=== PATIENT | male | born 1940 | race Caucasian/White ===

== ENCOUNTER → 2021-01-28 | Outpatient (CLI) | payer MEDICARE, OTHER ==
[~2021-01-28] MED LIST: ALBUTEROL SULFAT3 M3 IH; ALBUTEROL0.83 MG/ML IH; AQUAPHOR OINTM396 GM TP; ASPIRIN E.C. 8181 MG PO; AZILECT1 MG PO; BETAMETHASONE VA0.1% TP; CLARITIN 1010 MG/TAB PO; COLACE 100100 MG/CAP PO; COZAAR 50MG50 MG/TAB PO; COZAAR100 MG PO; FLOMAX 0.40.4 MG/CAP PO; FLONASE NASAL S16 GM NS; GLUCOPHAGE500 MG/TAB PO; HCTZ 25MG TAB25 MG PO; HCTZ12.5TAB PO; INCRUSE EL62.5 MCG/A IH; LIPITOR 10MG10 MG PO; LIPITOR20 MG PO; MELATONIN5 M1 SL; NEURONTIN100 MG/CAP PO; ONE-A-DAY ESSE1 EACH PO; PLAVIX 75MG TAB75 MG PO; PRILOSEC 20MG20 MG PO; PROVENTIL0.09 MG/A1 IH; REQUIP2 MG PO; RT ADVAIR 528 DISKUS IH; RT SPIRIVA18 MCG IH; SINEMET 25/101 UDTAB PO; SINGULAIR 110 MG/TAB PO; UROXATRAL10 M1 PO; ZESTRIL 20MG TA20 MG PO; ZETIA 10MG TAB10 MG PO; ZITHROMAX 250M250 MG PO; ZOLOFT 25MG25 MG PO; ZYPREXA 5MG5 MG PO; ZYPREXA2.5 MG PO; [UNRECOGNIZED DRUG - OTHER] TOP
[2021-01-28 11:21] LABS: BASO # 0.1 (0.0-0.2); BASO % 0.7 % (0.0-2.0); EOS # 0.3 (0.0-0.7); EOS % 3.9 % (0-4.0); GRAN # 4.3 (1.4-6.5); GRAN % 61.9 % (42.2-75.2); HEMATOCRIT 41.3 % (42.0-52.0); HEMOGLOBIN 13.1 g/dl (13.5-18.0); LYMPH # 1.7 (1.2-3.4); LYMPH % 24.7 % (20.0-51.0); MEAN CELL VOLUME 90 fl (80.0-100.0); MEAN CORPUSCULAR HEMOGLOBIN 28 pg (27.0-31.0); MEAN CORPUSCULAR HGB CONC 32 g/dl (33.0-37.0); MEAN PLATELET VOLUME 11.6 fl (7.4-10.4); MONO # 0.6 (0.1-0.6); MONO % 8.4 % (1.7-9.3); PLATELET COUNT 189 K/mm3 (130-400); RED BLOOD COUNT 4.61 M/mm3 (4.20-5.60); REDCELL DISTRIBUTION WIDTH-CV 13.7 % (11.5-14.5)
[2021-01-28 11:29] LABS: ALBUMIN 3.6 gm/dL (3.5-5.0); BILIRUBIN,TOTAL 0.7 mg/dL (0.0-1.0); CALCIUM 8.4 mg/dL (8.4-10.2); CREATININE, serum 1.05 (0.66-1.25); POTASSIUM 3.9 mmol/L (3.4-5.0); TOTAL PROTEIN 6.4 gm/dL (6.4-8.2)
[2021-01-28 11:42] LABS: CHOLESTEROL RISK RATIO 5.1
[2021-01-28 11:58] LABS: THYROID STIMULATING HORMONE 0.588 uIU/mL (0.465-4.680)
[2021-01-28 16:09] LABS: MUCOUS Present /lpf; PH 5 (5-8); SQUAMOUS EPITHELIAL None Seen /hpf; URINE APPEARANCE Clear; URINE BACTERIA None Seen /hpf; URINE BILIRUBIN Negative (NEGATIVE); URINE BLOOD Negative (NEGATIVE); URINE COLOR Yellow; URINE GLUCOSE 2+ (NEGATIVE); URINE KETONE Negative (NEGATIVE); URINE LEUKOCYTE ESTERASE Negative (NEGATIVE); URINE NITRATE Negative (NEGATIVE); URINE PROTEIN(semi-quant) Negative (NEGATIVE); URINE RBC 0-2 /hpf; URINE UROBILINOGEN Negative (NEGATIVE)
[2021-01-28 17:46] LABS: COLLECTION METHOD CLEAN CATCH
== END ==
LOC: ZLAB.STJ 10:55
PROVIDERS: Family Medicine
DX: E11.649 Type 2 diabetes mellitus with hypoglycemia without coma (principal); E03.9 Hypothyroidism, unspecified; I10 Essential (primary) hypertension; N40.1 Benign prostatic hyperplasia with lower urinary tract symptoms; J44.1 Chronic obstructive pulmonary disease with (acute) exacerbation; K21.9 Gastro-esophageal reflux disease without esophagitis; E78.5 Hyperlipidemia, unspecified; G20 Parkinson's disease

== ENCOUNTER → 2021-01-30 | Outpatient (CLI) | payer MEDICARE, OTHER | LOC: ZCOL.LAB 11:59 | DX: Z01.89 Encounter for other specified special examinations (principal) ==

== ENCOUNTER → 2021-01-30 | Outpatient (REF) ==
[2021-01-30 11:20] LABS: COLLECTION METHOD RANDOM VOIDED
[2021-01-30 11:33] LABS: BASO # 0.1 (0.0-0.2); BASO % 0.6 % (0.0-2.0); EOS # 0.2 (0.0-0.7); EOS % 3.1 % (0-4.0); GRAN # 5.3 (1.4-6.5); GRAN % 67.8 % (42.2-75.2); HEMOGLOBIN 14.5 g/dl (13.5-18.0); LYMPH # 1.5 (1.2-3.4); LYMPH % 19.2 % (20.0-51.0); MEAN CELL VOLUME 89 fl (80.0-100.0); MEAN CORPUSCULAR HEMOGLOBIN 28 pg (27.0-31.0); MEAN CORPUSCULAR HGB CONC 32 g/dl (33.0-37.0); MEAN PLATELET VOLUME 11.8 fl (7.4-10.4); MONO # 0.7 (0.1-0.6); MONO % 8.5 % (1.7-9.3); PLATELET COUNT 221 K/mm3 (130-400); RED BLOOD COUNT 5.18 M/mm3 (4.20-5.60); REDCELL DISTRIBUTION WIDTH-CV 13.7 % (11.5-14.5)
[2021-01-30 11:36] LABS: PH 5 (5-8); SQUAMOUS EPITHELIAL 0-2 /hpf; URINE APPEARANCE Clear; URINE BACTERIA None Seen /hpf; URINE BILIRUBIN Negative (NEGATIVE); URINE BLOOD Negative (NEGATIVE); URINE COLOR Yellow; URINE GLUCOSE Negative (NEGATIVE); URINE KETONE Negative (NEGATIVE); URINE LEUKOCYTE ESTERASE Negative (NEGATIVE); URINE NITRATE Negative (NEGATIVE); URINE PROTEIN(semi-quant) Negative (NEGATIVE); URINE RBC 0-2 /hpf; URINE UROBILINOGEN Negative (NEGATIVE); URINE WBC 0-2 /hpf
[2021-01-30 11:44] LABS: ALBUMIN 4.3 gm/dL (3.5-5.0); BILIRUBIN,TOTAL 0.7 mg/dL (0.0-1.0); CALCIUM 8.9 mg/dL (8.4-10.2); CREATININE, serum 1.15 (0.66-1.25); POTASSIUM 4.1 mmol/L (3.4-5.0); TOTAL PROTEIN 7.5 gm/dL (6.4-8.2)
[2021-01-30 11:59] LABS: CHOLESTEROL RISK RATIO 4.8
[2021-01-30 12:14] LABS: THYROID STIMULATING HORMONE 0.562 uIU/mL (0.465-4.680)
== END ==
LOC: ZLAB.STJ 11:18
PROVIDERS: Family Medicine
DX: Z01.89 Encounter for other specified special examinations (principal)

== ENCOUNTER → 2021-02-10 | Outpatient (CLI) | payer MEDICARE, OTHER | LOC: COL.RAD 13:27 | DX: R76.11 Nonspecific reaction to tuberculin skin test without active tuberculosis (principal) ==

== ENCOUNTER → 2021-05-22 | Outpatient (CLI) | payer MEDICARE, OTHER | LOC: ZLAB.STJ 16:41 | DX: N40.1 Benign prostatic hyperplasia with lower urinary tract symptoms (principal); Z12.5 Encounter for screening for malignant neoplasm of prostate ==

== ENCOUNTER → 2021-05-26 | Outpatient (CLI) | payer MEDICARE, OTHER ==
[2021-05-26 16:51] LABS: ALBUMIN 3.3 gm/dL (3.4-4.8); BILIRUBIN,TOTAL 0.5 mg/dL (0.2-1.2); CALCIUM 8.4 mg/dL (8.4-10.2); CREATININE, serum 1.19 mg/dL (0.72-1.25); TOTAL PROTEIN 6.5 gm/dL (6.2-8.1)
== END ==
LOC: ZLAB.STJ 14:19
PROVIDERS: Family Medicine
DX: R13.14 Dysphagia, pharyngoesophageal phase (principal)

== ENCOUNTER → 2021-06-05 | Outpatient (CLI) | payer MEDICARE, OTHER | LOC: COL.RAD 11:26 | DX: N40.0 Benign prostatic hyperplasia without lower urinary tract symptoms (principal); J44.9 Chronic obstructive pulmonary disease, unspecified; M19.90 Unspecified osteoarthritis, unspecified site; R46.89 Other symptoms and signs involving appearance and behavior ==

== ENCOUNTER 2021-06-06 15:45 | Observation (INO) | payer MEDICARE, OTHER ==
[~2021-06-06] VITALS: Ht 175.3 cm; Wt 83.8 kg
[~2021-06-06 15:45] MED LIST changes: -AZILECT1 MG PO; -COLACE 100100 MG/CAP PO; -COZAAR 50MG50 MG/TAB PO; -HCTZ12.5TAB PO; -LIPITOR 10MG10 MG PO; -MELATONIN5 M1 SL; -ONE-A-DAY ESSE1 EACH PO; -PLAVIX 75MG TAB75 MG PO; -ZOLOFT 25MG25 MG PO; -ZYPREXA 5MG5 MG PO; -ZYPREXA2.5 MG PO
[2021-06-06 16:51] LABS: BASO # 0.1 K/mm3 (0.0-0.2); BASO % 0.9 % (0.0-2.0); EOS # 0.6 K/mm3 (0.0-0.7); GRAN # 3.2 K/mm3 (1.4-6.5); GRAN % 54.5 % (42.2-75.2); HEMOGLOBIN 11.4 g/dl (13.5-18.0); LYMPH # 1.1 K/mm3 (1.2-3.4); LYMPH % 19.7 % (20.0-51.0); MEAN CELL VOLUME 90 fl (80.0-100.0); MEAN CORPUSCULAR HEMOGLOBIN 29 pg (27.0-31.0); MEAN CORPUSCULAR HGB CONC 32 g/dl (33.0-37.0); MEAN PLATELET VOLUME 10.8 fl (7.4-10.4); MONO # 0.8 K/mm3 (0.1-0.6); PLATELET COUNT 156 K/mm3 (130-400); RED BLOOD COUNT 3.93 M/mm3 (4.20-5.60); REDCELL DISTRIBUTION WIDTH-CV 13.5 % (11.5-14.5)
[2021-06-06 17:04] LABS: HEMATOCRIT 35.3 % (42.0-52.0)
[2021-06-06 17:08] LABS: INR 1.1 (0.8-3.0); PROTHROMBIN TIME 11.9 SECONDS (9.7-12.8)
[2021-06-06 17:14] LABS: ALANINE AMINOTRANSFERASE 16 U/L (0-55); ALBUMIN 3.3 gm/dL (3.4-4.8); ALKALINE PHOSPHATASE 104 U/L (0-750); ANION GAP 8 mmol/L (7-16); AST,SGOT 21 U/L (5-34); BILIRUBIN,TOTAL 0.5 mg/dL (0.2-1.2); BLOOD UREA NITROGEN 16 mg/dL (8-26); CALCIUM 8.6 mg/dL (8.4-10.2); CARBON DIOXIDE 25 mmol/L (23-31); CHLORIDE 107 mmol/L (98-107); CREATININE, serum 1.21 mg/dL (0.72-1.25); GLUCOSE 114 mg/dL (70-99); POTASSIUM 3.8 mmol/L (3.5-4.5); SODIUM 140 mmol/L (136-145); TOTAL PROTEIN 6.5 gm/dL (6.2-8.1)
[2021-06-06 17:20] LABS: TROPONIN-I < 0.010 ng/mL (0.00-0.033)
[2021-06-06 18:52] LABS: COLLECTION METHOD CLEAN CATCH
[2021-06-06 18:58] LABS: PH 5 (5-8); SQUAMOUS EPITHELIAL None Seen /hpf; URINE APPEARANCE Clear; URINE BACTERIA None Seen /hpf; URINE BILIRUBIN Negative (NEGATIVE); URINE BLOOD Negative (NEGATIVE); URINE COLOR Yellow; URINE GLUCOSE Negative (NEGATIVE); URINE KETONE Negative (NEGATIVE); URINE LEUKOCYTE ESTERASE Negative (NEGATIVE); URINE NITRATE Negative (NEGATIVE); URINE PROTEIN(semi-quant) Negative (NEGATIVE); URINE RBC 0-2 /hpf; URINE UROBILINOGEN Negative (NEGATIVE)
[2021-06-06] MEDS ORDERED: MELATONIN5 M1 SL (20:29)
[2021-06-06] MEDS ORDERED: ZYPREXA 5MG5 MG PO (20:30)
[2021-06-06] MEDS ORDERED: AZILECT1 MG PO (20:30)
[2021-06-06] MEDS ORDERED: ZYPREXA2.5 MG PO (20:30)
[2021-06-06] MEDS ORDERED: ZOLOFT 25MG25 MG PO (20:30)
[2021-06-06] MEDS ORDERED: COZAAR 50MG50 MG/TAB PO (20:31)
[2021-06-06] MEDS ORDERED: HCTZ12.5TAB PO (20:31)
[2021-06-06] MEDS ORDERED: ONE-A-DAY ESSE1 EACH PO (20:31)
[2021-06-06] MEDS ORDERED: COLACE 100100 MG/CAP PO (20:31)
[2021-06-06] MEDS ORDERED: ASPIRIN E.C. 8181 MG PO (20:31)
--- NOTE | 2021-06-06 21:50 | NUR ---
Pt admitted to room 325 per cart from ED, accompanied by ED staff, alert, able to slide from cart to bed with minimal assist, pt oriented to self and birthday, knows his 's name, unable to state where he is currently, states he gets confused on date and time. on RA, VSS. 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 IV present in , placed on NS @75cc/hr. hx and medications reviewed from [facility] paperwork.
[2021-06-06 21:59] VITALS: BP 152/66; PULSE 58; TEMP 97.3
[2021-06-06 23:51] VITALS: BP 134/62; PULSE 56; TEMP 98.1
[2021-06-07 03:43] VITALS: BP 128/51; PULSE 56; TEMP 98.5
--- NOTE | 2021-06-07 05:40 | NUR ---
pt on RA, no changes noted in neuro status, able to ambulate to restroom with assist x1, slightly unsteady at times, does not remember to call for help, impulsive, bed alarm on.
[2021-06-07 07:15] LABS: BASO % 0.7 % (0.0-2.0); EOS # 0.5 K/mm3 (0.0-0.7); EOS % 8.2 % (0-4.0); GRAN # 3.6 K/mm3 (1.4-6.5); HEMOGLOBIN 10.9 g/dl (13.5-18.0); LYMPH # 1.1 K/mm3 (1.2-3.4); LYMPH % 18.2 % (20.0-51.0); MEAN CELL VOLUME 88 fl (80.0-100.0); MEAN CORPUSCULAR HEMOGLOBIN 29 pg (27.0-31.0); MEAN CORPUSCULAR HGB CONC 33 g/dl (33.0-37.0); MEAN PLATELET VOLUME 11.8 fl (7.4-10.4); MONO # 0.6 K/mm3 (0.1-0.6); MONO % 10.6 % (1.7-9.3); PLATELET COUNT 154 K/mm3 (130-400); RED BLOOD COUNT 3.78 M/mm3 (4.20-5.60); REDCELL DISTRIBUTION WIDTH-CV 13.6 % (11.5-14.5)
[2021-06-07 07:20] LABS: HEMATOCRIT 33.1 % (42.0-52.0)
[2021-06-07 07:22] LABS: CALCIUM 8.4 mg/dL (8.4-10.2); CREATININE, serum 0.99 mg/dL (0.72-1.25); POTASSIUM 3.6 mmol/L (3.5-4.5)
[2021-06-07 07:48] VITALS: BP 144/84; PULSE 58; TEMP 97.4
--- NOTE | 2021-06-07 11:00 | NUR ---
Patient agitated, yelling out and cursing. Upon entering room, patient states "get the hell out of here you Faith". Patient attempts to shove bedside table at staff, throws items off table. Grabs IV pole and attempts to pick it up and jab staff with pole. Another nurse enters room to assist with patient, patient looks at nurse and states "why don't you just bite my rios off". Patient continues to attempt to shove table at staff. Patient then gets OOB and ambulates to the bathroom, cursing and using inappropriate terms, at one time yelling at staff member out side of room "get out of here 'nigger'". Patient educated on appropriate speech. Security called to assist. Attempted x2 to notify Dr Serrato. Patient in bathroom, visual of patient at all times r/t fall risk. Patient continually hold middle finger up at staff and states "do you like that". Patient noted to be masturbating on toilet. Security at bedside.
--- NOTE | 2021-06-07 11:18 | NUR ---
stopped by but nothing needed at this time.
--- NOTE | 2021-06-07 12:30 | NUR ---
Patient continues with inappropriate behaviour. Continues to use inappropriate language and attempts to throw items at staff. Occasionally makes a fist and states "I'll beat you". Haldol given per Drs order.
--- NOTE | 2021-06-07 13:45 | NUR ---
Patient ambulates in servin with staff assist x2. Becomes drowsy, assisted back to bed. Resting in bed at thsi time.
--- NOTE | 2021-06-07 15:29 | NUR ---
Assessment not obtained. Patient is combative and not cooperating with staff. Will attempt family.
[2021-06-07 20:00] VITALS: BP 149/84; PULSE 62; TEMP 98.1
[2021-06-08] VITALS (8 sets, daily range): BP systolic 117–140; BP diastolic 59–86; PULSE 61–71; TEMP 97.2–98
[2021-06-08 07:38] LABS: BASO % 0.7 % (0.0-2.0); EOS # 0.5 K/mm3 (0.0-0.7); EOS % 9.6 % (0-4.0); GRAN # 3.4 K/mm3 (1.4-6.5); HEMATOCRIT 33.3 % (42.0-52.0); HEMOGLOBIN 10.8 g/dl (13.5-18.0); LYMPH # 0.9 K/mm3 (1.2-3.4); LYMPH % 15.7 % (20.0-51.0); MEAN CELL VOLUME 91 fl (80.0-100.0); MEAN CORPUSCULAR HEMOGLOBIN 29 pg (27.0-31.0); MEAN CORPUSCULAR HGB CONC 32 g/dl (33.0-37.0); MEAN PLATELET VOLUME 11.3 fl (7.4-10.4); MONO # 0.7 K/mm3 (0.1-0.6); MONO % 12.5 % (1.7-9.3); PLATELET COUNT 161 K/mm3 (130-400); RED BLOOD COUNT 3.67 M/mm3 (4.20-5.60); REDCELL DISTRIBUTION WIDTH-CV 13.5 % (11.5-14.5)
[2021-06-08 08:01] LABS: CALCIUM 8.4 mg/dL (8.4-10.2); CREATININE, serum 0.99 mg/dL (0.72-1.25); POTASSIUM 3.8 mmol/L (3.5-4.5)
--- NOTE | 2021-06-08 09:00 | NUR ---
WHEN ASKED HOW PT WAS DOING HE SAID "NOT GOOD". PT WOULD NOT ELABORATE, PT ALERT TO SELF BUT NOT PLACE OR TIME. REORIENTED PT, PT REFUSING TO TAKE MEDICATIONS, PT REFUSING BREAKFAST, ASSESSMENT PERFORMED, PT REPORTING ABD PAIN WITH PALPATION. NO OTHER NEEDS AT THIS TIME
--- NOTE | 2021-06-08 10:51 | NUR ---
PT C/O ABD PAIN, HAVING BM RECENTLY, PT STATED HE WOULD TAKE TYLENOL, CALLED PROVIDER FOR ORDER.
--- NOTE | 2021-06-08 14:52 | NUR ---
VERBAL ORDER OBTAINED FROM DR SINCLAIR TO DC TELEMETRY
--- NOTE | 2021-06-08 15:19 | NUR ---
PT DA REPORTS PT "HALLUCINATES ON SINEMET"
--- NOTE | 2021-06-08 17:11 | NUR ---
pt trying to get out of chair frequently, iv to lh infusing fluids, pt pleasantly confused, denies pain, no other needs
--- NOTE | 2021-06-08 17:45 | NUR ---
pt lowered himself to hands and knees from chair. chair alarm sounded, pt did not hit head. vitals obtained, left message for physician to notify. pt denies pain or discomfort. reports "just trying to pick something up off of the floor". back in chair with chair alarm on once again.
[2021-06-09 01:02] VITALS: BP 124/52; PULSE 63; TEMP 97.8
--- NOTE | 2021-06-09 01:28 | NUR ---
PT IS SLEEPING @ THIS TIME, SNORING QUIETLY. PT DOES NOT USE CALL LIGHT ET TRIES TO LEAVE BED ON OWN WHEN NEEDING TO USE BR. PT FOLLOWS DIRECTIONS BUT CONVERSTAION IS SOMETIMES INAPPROPRIATE ET PT OFTEN DOES NOT USE CORRECT EXPRESSIONS OF WORDS. 2 PERSON ASSIST USED TO USE URINAL ET USE BR. GAIT IS UNSTEADY ET PT SHUFFLES HIS FEET. BED ALARM ON, CALL LIGHT WITHIN REACH.
[2021-06-09 03:50] VITALS: BP 149/58; PULSE 64; TEMP 97.5
[2021-06-09 07:25] VITALS: BP 159/75; PULSE 62; TEMP 97.6
[2021-06-09] MEDS ORDERED: LIPITOR 10MG10 MG PO (08:30)
[2021-06-09] MEDS ORDERED: PLAVIX 75MG TAB75 MG PO (08:30)
[2021-06-09] MEDS ORDERED: SINEMET 25/101 UDTAB PO (08:32)
--- NOTE | 2021-06-09 09:01 | NUR ---
Patient alert, confused. Engages in conversation, although questions and answers sporadic. No inappropriate behaviours at this time.
[2021-06-09 09:29] VITALS: BP 159/75; PULSE 62; TEMP 97.6
[2021-06-09 11:29] VITALS: BP 121/53; PULSE 62; TEMP 96.8
--- NOTE | 2021-06-09 12:16 | NUR ---
First visit from the emergency preparedness manager. No needs right now.
--- NOTE | 2021-06-09 12:52 | NUR ---
Transfer time set for 1400. RN notified, family notified.
--- NOTE | 2021-06-09 14:23 | NUR ---
Patient transfered to [facility] via wheelchair/transportation staff. Report called to Marilee. Paperwork sent.
== END 2021-06-09 14:25 ==
LOC: COL.ER 15:45 → SURG 19:33
PROVIDERS: Nurse Practitioner Family; Student in an Organized Health Care Education/Training Program; ADMIT Student in an Organized Health Care Education/Training Program
DX: R41.82 Altered mental status, unspecified (principal); G20 Parkinson's disease; F02.81 Dementia in other diseases classified elsewhere, unspecified severity, with behavioral disturbance; I10 Essential (primary) hypertension; I25.10 Atherosclerotic heart disease of native coronary artery without angina pectoris; I50.30 Unspecified diastolic (congestive) heart failure; J44.9 Chronic obstructive pulmonary disease, unspecified; D64.9 Anemia, unspecified; E11.9 Type 2 diabetes mellitus without complications; E78.5 Hyperlipidemia, unspecified; G47.33 Obstructive sleep apnea (adult) (pediatric); E66.9 Obesity, unspecified; R41.9 Unspecified symptoms and signs involving cognitive functions and awareness; M19.90 Unspecified osteoarthritis, unspecified site; F03.90 Unspecified dementia, unspecified severity, without behavioral disturbance, psychotic disturbance, mood disturbance, and anxiety; E04.1 Nontoxic single thyroid nodule; F32.9 Major depressive disorder, single episode, unspecified; Z86.718 Personal history of other venous thrombosis and embolism; Z79.899 Other long term (current) drug therapy; Z79.82 Long term (current) use of aspirin
CPT/HCPCS: 99233-AI; G0378; J1630; J1650; J7030; Q9967

== ENCOUNTER → 2021-09-18 | Outpatient (CLI) | payer MEDICARE, OTHER ==
[~2021-09-18] MED LIST changes: +AZILECT1 MG PO; +COLACE 100100 MG/CAP PO; +COZAAR 50MG50 MG/TAB PO; +HCTZ12.5TAB PO; +LIPITOR 10MG10 MG PO; +MELATONIN5 M1 SL; +ONE-A-DAY ESSE1 EACH PO; +PLAVIX 75MG TAB75 MG PO; +ZOLOFT 25MG25 MG PO; +ZYPREXA 5MG5 MG PO; +ZYPREXA2.5 MG PO
[2021-09-18 16:29] LABS: COLLECTION METHOD CLEAN CATCH
[2021-09-18 16:49] LABS: PH 5 (5-8); SQUAMOUS EPITHELIAL None Seen /hpf (0-10); URINE APPEARANCE Clear (CLEAR/HAZY); URINE BACTERIA None Seen /hpf (NONE SEEN); URINE BILIRUBIN Negative (NEGATIVE); URINE BLOOD Negative (NEGATIVE); URINE CALCIUM OXALATE CRYSTAL Present (NOT PRESENT); URINE COLOR Yellow (YELLOW); URINE GLUCOSE Negative (NEGATIVE); URINE KETONE Trace (NEGATIVE); URINE LEUKOCYTE ESTERASE Negative (NEGATIVE); URINE NITRATE Negative (NEGATIVE); URINE PROTEIN(semi-quant) Negative (NEGATIVE); URINE RBC 0-2 /hpf (0-2); URINE UROBILINOGEN Negative (NEGATIVE); URINE WBC 0-2 /hpf (0-2)
== END ==
LOC: ZLAB.STJ 16:09
PROVIDERS: Internal Medicine
DX: N39.0 Urinary tract infection, site not specified (principal)

== ENCOUNTER → 2021-10-03 | Outpatient (CLI) | payer MEDICARE, OTHER | LOC: ZLAB.STJ 13:28 | DX: R73.09 Other abnormal glucose (principal) ==

== ENCOUNTER 2021-11-18 16:10 | Emergency (ER) | payer MEDICARE, OTHER ==
[~2021-11-18] VITALS: Ht 167.6 cm; Wt 81.8 kg
[2021-11-18 16:29] VITALS: TEMP 98.5
[2021-11-18 17:55] VITALS: BP 148/80; PULSE 67
== END 2021-11-18 17:55 | disposition home or self-care (01) ==
LOC: COL.ER 16:10
DX: S00.93XA Contusion of unspecified part of head, initial encounter (principal); Z87.891 Personal history of nicotine dependence; Z79.02 Long term (current) use of antithrombotics/antiplatelets; W01.198A Fall on same level from slipping, tripping and stumbling with subsequent striking against other object, initial encounter

== ENCOUNTER → 2021-12-04 | Outpatient (CLI) | payer MEDICARE, OTHER | LOC: ZLAB.STJ 13:42 | DX: E11.69 Type 2 diabetes mellitus with other specified complication (principal) ==

== ENCOUNTER → 2022-02-09 | Outpatient (CLI) | payer MEDICARE, OTHER ==
[2022-02-09 19:58] LABS: ALBUMIN 3.4 gm/dL (3.4-4.8); BILIRUBIN,TOTAL 0.5 mg/dL (0.2-1.2); CALCIUM 8.6 mg/dL (8.4-10.2); CREATININE, serum 1.21 mg/dL (0.72-1.25); POTASSIUM 4.6 mmol/L (3.5-4.5); TOTAL PROTEIN 6.2 gm/dL (6.2-8.1)
[2022-02-09 20:02] LABS: BASO % 0.6 % (0.0-2.0); EOS # 0.3 K/mm3 (0.0-0.7); EOS % 3.8 % (0.0-4.0); GRAN # 4.2 K/mm3 (1.4-6.5); GRAN % 64.5 % (42.2-75.2); HEMOGLOBIN 11.5 g/dl (13.5-18.0); LYMPH # 1.3 K/mm3 (1.2-3.4); LYMPH % 19.6 % (20.0-51.0); MEAN CELL VOLUME 91 fl (80.0-100.0); MEAN CORPUSCULAR HEMOGLOBIN 29 pg (27-31); MEAN CORPUSCULAR HGB CONC 32 g/dl (33.0-37.0); MEAN PLATELET VOLUME 12.5 fl (7.4-10.4); MONO # 0.7 K/mm3 (0.1-0.6); MONO % 10.9 % (1.7-9.3); PLATELET COUNT 180 K/mm3 (130-400); RED BLOOD COUNT 3.99 M/mm3 (4.20-5.60); REDCELL DISTRIBUTION WIDTH-CV 13.7 % (11.5-14.5)
[2022-02-09 20:05] LABS: HEMATOCRIT 36.1 % (42.0-52.0)
== END ==
LOC: ZCOL.LAB 19:16
PROVIDERS: Internal Medicine
DX: Z13.228 Encounter for screening for other metabolic disorders (principal); R79.9 Abnormal finding of blood chemistry, unspecified

== ENCOUNTER 2023-08-28 10:30 | Emergency (ER) | payer OTHER ==
[~2023-08-28 10:30] MED LIST changes: +BACTRIM DS 8001 TAB PO; +CEFTIN 250250 MG/TAB PO; +DEPAKOTE ER 25250 MG PO; +DEPAKOTE500 MG PO; +EXELON 1.5MG1.5 MG PO; +GOOD NEIGH1200 MG/15 PO; -HCTZ 25MG TAB25 MG PO; +LIPITOR 40MG TA40 MG PO; +MACROBID 1100 MG/CAP PO; +OMNICEF 300MG300 MG PO; +PEPCID 20MG TAB20 MG PO; +SALONPAS1 EACH TP; +TYLENOL 325MG325 MG PO; +TYLENOL 500MG500 MG PO
[2023-08-28 10:35] VITALS: TEMP 97.1
[2023-08-28 11:36] LABS: BASO % 0.7 % (0.0-2.0); EOS # 0.1 K/mm3 (0.0-0.7); EOS % 3.2 % (0.0-4.0); GRAN # 2.7 K/mm3 (1.4-6.5); GRAN % 60.7 % (42.2-75.2); HEMATOCRIT 32.1 % (42.0-52.0); HEMOGLOBIN 10.5 g/dl (13.5-18.0); LYMPH % 22.8 % (20.0-51.0); MEAN CELL VOLUME 93 fl (80.0-100.0); MEAN CORPUSCULAR HEMOGLOBIN 30 pg (27-31); MEAN CORPUSCULAR HGB CONC 33 g/dl (33.0-37.0); MEAN PLATELET VOLUME 11.6 fl (7.4-10.4); MONO # 0.6 K/mm3 (0.1-0.6); MONO % 12.4 % (1.7-9.3); PLATELET COUNT 126 K/mm3 (130-400); RED BLOOD COUNT 3.46 M/mm3 (4.20-5.60); REDCELL DISTRIBUTION WIDTH-CV 13.6 % (11.5-14.5)
[2023-08-28 11:51] LABS: ALBUMIN 3.1 gm/dL (3.4-4.8); BILIRUBIN,TOTAL 0.8 mg/dL (0.2-1.2); CALCIUM 8.4 mg/dL (8.4-10.2); CREATININE, serum 1.02 mg/dL (0.72-1.25); POTASSIUM 3.8 mmol/L (3.5-4.5); TOTAL PROTEIN 5.8 gm/dL (6.2-8.1)
[2023-08-28 12:46] VITALS: BP 129/65; PULSE 60
== END 2023-08-28 13:23 | disposition home or self-care (01) ==
LOC: COL.ER 10:30
PROVIDERS: Personal Emergency Response Attendant
DX: R41.82 Altered mental status, unspecified (principal); R00.1 Bradycardia, unspecified; W19.XXXA Unspecified fall, initial encounter; Y92.129 Unspecified place in nursing home as the place of occurrence of the external cause

== ENCOUNTER 2023-09-08 01:30 | Emergency (ER) | payer OTHER ==
[~2023-09-08] VITALS: Ht 172.7 cm; Wt 73.0 kg
[2023-09-08 02:03] LABS: BASO % 0.8 % (0.0-2.0); EOS # 0.2 K/mm3 (0.0-0.7); GRAN # 2.5 K/mm3 (1.4-6.5); GRAN % 50.5 % (42.2-75.2); HEMATOCRIT 31.5 % (42.0-52.0); HEMOGLOBIN 10.3 g/dl (13.5-18.0); LYMPH # 1.7 K/mm3 (1.2-3.4); LYMPH % 34.4 % (20.0-51.0); MEAN CELL VOLUME 94 fl (80.0-100.0); MEAN CORPUSCULAR HEMOGLOBIN 31 pg (27-31); MEAN CORPUSCULAR HGB CONC 33 g/dl (33.0-37.0); MONO # 0.5 K/mm3 (0.1-0.6); MONO % 9.9 % (1.7-9.3); PLATELET COUNT 137 K/mm3 (130-400); RED BLOOD COUNT 3.37 M/mm3 (4.20-5.60); REDCELL DISTRIBUTION WIDTH-CV 13.2 % (11.5-14.5)
[2023-09-08 02:13] LABS: ALBUMIN 2.9 gm/dL (3.4-4.8); BILIRUBIN,TOTAL 0.3 mg/dL (0.2-1.2); C-REACTIVE PROTEIN 0.11 mg/dL (0.00-0.50); CALCIUM 8.1 mg/dL (8.4-10.2); CREATININE, serum 0.84 mg/dL (0.72-1.25); POTASSIUM 3.6 mmol/L (3.5-4.5); TOTAL PROTEIN 5.5 gm/dL (6.2-8.1)
[2023-09-08 02:55] VITALS: TEMP 95.1
[2023-09-08 03:22] VITALS: BP 113/89; PULSE 51
== END 2023-09-08 04:06 | disposition home or self-care (01) ==
LOC: COL.ER 01:30
PROVIDERS: Nurse Practitioner
DX: R41.82 Altered mental status, unspecified (principal); W19.XXXA Unspecified fall, initial encounter; Y92.129 Unspecified place in nursing home as the place of occurrence of the external cause